=== PATIENT | male | born 1980 | race Two or more races ===

== ENCOUNTER 2022-04-02 22:04 | Emergency (ER) | payer BC ==
[2022-04-02 22:13] VITALS: TEMP 97.9; BMI 26.6
[2022-04-03] MEDS ORDERED: METOCLOPRAMIDE HCL INJECTION 10 MG/2 ML VIAL IVPUSH ONE (00:10)
[2022-04-03] MEDS ORDERED: ACETAMINOPHEN 1000 MG/100 ML BAG IVPB ONE (00:10)
[2022-04-03] MEDS ORDERED: SODIUM CHLORIDE 0.9% 1000 ML INFUS.BAG IV ONE (00:10)
[2022-04-03] MEDS ORDERED: METOCLOPRAMIDE HCL INJECTION 10 MG/2 ML VIAL ONE (00:15)
[2022-04-03] MEDS ORDERED: ACETAMINOPHEN INJECTION 100 ML IVPB ONE (00:15)
[2022-04-03 00:40] LABS: BASO % 0.2 % (0-2.0); EOS % 0.6 % (0-4.5); HEMATOCRIT 43.4 % (35.4-49); HEMOGLOBIN 14.7 GM/dL (11.7-16.9); MCH 30.1 pg (25.7-33.7); MCHC 33.8 g/dl (32.0-35.9); MEAN CELL VOLUME 89.1 fl (80-96); MEAN PLT VOLUME 8.3 fl (7.5-11.1); MONO % 7.2 % (3.8-10.2); PLATELET COUNT 196 10^3/uL (134-434); RBC 4.87 M/mm3 (4.00-5.60); RDW 13.7 % (11.9-15.9); WHITE BLOOD COUNT 8.4 K/mm3 (4.0-10.0)
[2022-04-03 01:03] LABS: ALBUMIN 3.7 g/dl (3.4-5.0); BLOOD UREA NITROGEN 17.1 mg/dL (7-18); CALCIUM 8.6 mg/dL (8.5-10.1)
[2022-04-03 01:06] LABS: CREATININE 0.8 mg/dL (0.55-1.3)
[2022-04-03 01:07] LABS: BILIRUBIN,TOTAL 0.4 mg/dL (0.2-1); TOT PROT 6.9 g/dl (6.4-8.2)
[2022-04-03 02:23] VITALS: BP 112/79; PULSE 58; RESP 16
== END 2022-04-03 02:23 | disposition home or self-care (01) ==
LOC: JER 22:04
PROC: 3E0333Z Introduction of Anti-inflammatory into Peripheral Vein, Percutaneous Approach (ICD-10-PCS; principal; 2022-04-02)
PROC: 3E033GC Introduction of Other Therapeutic Substance into Peripheral Vein, Percutaneous Approach (ICD-10-PCS; 2022-04-02)
DX: R51.9 Headache, unspecified (principal)
CPT/HCPCS: 0241U-QW; 36415; 80053; 85025; 99284-25

== ENCOUNTER 2022-07-04 12:24 | Emergency (ER) | payer BC ==
[2022-07-04 12:37] VITALS: RESP 16; BMI 26.9
[2022-07-04] MEDS ORDERED: diphenhydrAMINE HCL 25 MG CAPSULE (FP) PO ONE ×2 (13:19→14:29)
[2022-07-04] MEDS ORDERED: FAMOTIDINE 20 MG TABLET PO ONE (13:20)
[2022-07-04] MEDS ORDERED: DEXAMETHASONE 4 MG TABLET (FP) PO ONE (13:20)
[2022-07-04] MEDS ORDERED: DEXAMETHASONE 4 MG TABLET (FP) ONE (14:28)
[2022-07-04] MEDS ORDERED: FAMOTIDINE 20 MG TABLET ONE (14:29)
[2022-07-04 14:40] VITALS: BP 126/76; PULSE 60; TEMP 96.9
== END 2022-07-04 14:53 | disposition home or self-care (01) ==
LOC: JERFT 12:24
DX: R21 Rash and other nonspecific skin eruption (principal)
CPT/HCPCS: 99283-25